=== PATIENT | male | born 1950 ===

== ENCOUNTER 2024-07-21 07:08 | Day surgery (SDC) | payer OTHER ==
[2024-07-21] MEDS ORDERED: FENTANYL CITR 100 MCG/2 ML ONE (07:43)
[2024-07-21] MEDS ORDERED: LIDOCAINE 1% MPF 5 ML VIAL ONE (07:43)
[2024-07-21] MEDS ORDERED: propofoL 200 MG/20 ML VIAL IV ONE (07:43)
[2024-07-21] MEDS ORDERED: MIDAZOLAM HCL 2 MG/2 ML INJ ONE (07:44)
[2024-07-21] MEDS: NA CHLORIDE 0.9% 1,000 ML ONE (07:45)
[2024-07-21] MEDS: CEFAZOLIN SODIUM 2 GM/VIAL ONE (08:50)
[2024-07-21] MEDS ORDERED: EPHEDRINE SULF 50 MG/ML VIAL ONE (08:58)
[2024-07-21] MEDS ORDERED: GLYCOPYRROLATE 0.2 MG/ML SYR ONE (09:02)
[2024-07-21] MEDS ORDERED: PHENAZOPYRIDINE 100MG TAB PO ONE (10:23)
[2024-07-21] MEDS ORDERED: CODEINE 30MG/APAP 300MG TAB PO PRN (10:23)
[2024-07-21 10:25] VITALS: TEMP 97
--- NOTE | 2024-07-21 10:52 | P.OP ---
Date of Service: 07/21/24 Preoperative diagnoses: BPH with obstruction and LUTS History of TURP Postoperative diagnoses: BPH with obstruction and LUTS History of TURP Principal procedures: Prostatic urethral lift with 7 implants used: 5 UL 2 devices and 2 UL 2 ATC devices Insertion of an 18 Irish coud urethral Cadet catheter Indication for procedure: 73-year-old gentleman with obstructive LUTS due to BPH despite history of prior TURP remotely. He was on maximal medical therapy with Flomax plus finasteride and an anticholinergic, but his LUTS were persistently bothersome and he desired further procedural therapy. Procedure note: The patient was consented in the preoperative holding area before being transferred to the operative suite where general anesthesia was induced. He was placed in the lithotomy position, padded and secured to the table appropriately. He was given Ancef 2 g IV antimicrobial prophylaxis, and pneumoboots were provided for DVT prophylaxis. His genitalia was prepped with Hibiclens and he was draped in standard fashion. The case was begun using a 20 Irish UroLift sheath and a visual obturator to traverse the urethra and into his bladder with some difficulty owing to some scarred narrowing at the bladder neck and elevation at the lip of the bladder neck entry. There was also a small prostatic urethral median lobar tissue/nodular regrowth. I then decompressed his bladder of fluid and urine and switched it for a new UroLift delivery device and the first implant. Because of all of the issues at the bladder neck, I ignored this to start, and instead targeted the patient's apical lateral lobar hypertrophy. The first implant was targeted at around the 3 o'clock position at the left apex at the level of the verumontanum. I angled the scope 15 degrees against that tissue and pressed the trigger once deploying the needle through the substance of the prostate. I then angled the scope and additional 15 deg nick laterally to compress the tissue completely and ensure the needle tip was seated outside of the capsular surface before pulling the trigger a second time deploying the capsular tab and partially retracting the needle. I pulled the trigger a third time to completely retract the needle and tension the suture. I then advanced the scope back toward the midline and 2 to 3 cm toward the bladder neck opening until the white line of the monofilament was centered in the delivery bay. At this point, I pulled the trigger a fourth time deploying the urethral end piece which did nicely lateralized the tissue in that location. I then advanced the scope back into the patient's bladder where I decompressed of fluid and urine and switched for a new UroLift implant. This implant was targeted on the patient's right apex at the level of the verumontanum at around the 10 to 11 o'clock position. There was nodular regrowth of tissue there in a bifid configuration with a nodule more superiorly and 1 more inferiorly. Since both could not be targeted simultaneously, I ended up targeting the superiormost nodule in order to try to create a continuous anterior channel. I followed the steps described above and did nicely lateralized the tissue in that location. I then switched for a third implant, but this time utilized a UL 2 ATC device because of the volume of tissue involving the mid zone of the prostate on the right. I thus grasped this tissue using the ATC device and elevated off laterally taking a median component of that tissue with me and placed an implant in that location successfully. There was now intrusion emanating from the patient's left lateral wall; so I placed a UL 2 device on the patient's left side into that tissue. I then surveyed the channel created, and while in nice open channel was visible, there was still some contracture at the bladder neck from the prior TURP. As a result, I utilized a second UL 2 ATC device this time to grasp the median lobar tissue in that location on the patient's right and the bladder neck itself trying to lateralize and open up the bladder neck decrease in the degree of contracture. I was able to pull it away nicely and deployed the implant in that location beautifully opening the bladder neck by distracting the right lateral side of the bladder neck opening somewhat down to the right. I then placed an additional UL 2 device this time to distract the bladder neck over to the left and down on the patient's left side at the bladder neck. At this point, I surveyed the channel created, and there was a degree of tissue that did seem to intraluminally intrude within the apical mid zone of the prostate; so I placed 1/ and final UL 2 device into that tissue on the patient's right side creating a beautiful continuous anterior channel visible from the verumontanum all the way into the bladder neck. There was a degree of residual intrusion owing to that bifid nodule of tissue initially observed coming from the patient's right apical side of the prostate, but this was left untouched at this time as it did not obstruct the anterior channel created. I thus removed the scope leaving the bladder full and replaced a new 18 Irish coud tip catheter into his bladder with ease. About 25 cc of sterile water was placed in the balloon and the drainage was light pink to clear. The catheter was connected to a leg bag and he was taken out of the lithotomy position. He was then awakened from general anesthesia before being transferred to a stretcher. He was then transferred to the recovery room in good condition. Complications: None Discharge disposition: He will be standard UroLift pathway with follow-up in about 1 month's time. He was instructed to resume his aspirin immediately and his Plavix on Saturday as long as his urine was light pink to clear. If he is not comfortable resuming his Plavix by Saturday of next week, he should contact me via the office.
[2024-07-21 11:05] VITALS: BP 151/52; O2SAT 96
== END 2024-07-21 11:46 | disposition home or self-care (01) ==
LOC: OR 07:08
PROVIDERS: ATTEND Urology
PROC: 0T7D8DZ Dilation of Urethra with Intraluminal Device, Via Natural or Artificial Opening Endoscopic (ICD-10-PCS; principal; 2024-07-21 08:30)
DX: N40.1 Benign prostatic hyperplasia with lower urinary tract symptoms (principal); N13.8 Other obstructive and reflux uropathy
CPT/HCPCS: 52441; 52442 ×6; 87088; 87086; 36415; 85730; J2704; J2003; J2250; J3010; J7030